=== PATIENT | female | born 1995 | race Caucasian/White ===

== ENCOUNTER → 2017-11-20 | Outpatient (CLI) | payer OTHER | LOC: M SMT 09:03 | DX: Z36.89 Encounter for other specified antenatal screening (principal); Z3A.18 18 weeks gestation of pregnancy | CPT/HCPCS: 76811 ==

== ENCOUNTER → 2017-12-20 | Outpatient (CLI) | payer OTHER | LOC: M SMT 11:04 | DX: O32.1XX0 Maternal care for breech presentation, not applicable or unspecified (principal); Z3A.22 22 weeks gestation of pregnancy | CPT/HCPCS: 76816 ==

== ENCOUNTER → 2018-01-30 | Outpatient (CLI) | payer OTHER ==
[2018-01-30 13:25] LABS: HEMATOCRIT 31.9 % (36.0-47.0); HEMOGLOBIN 10.5 g/dl (12.0-15.5); MEAN CORPUSCULAR HEMOGLOBIN 29.7 pg (27.0-33.0); MEAN CORPUSCULAR HGB CONC 32.9 g/dl (32.0-36.5); MEAN CORPUSCULAR VOLUME 90.1 fl (80.0-96.0); PLATELET COUNT, AUTOMATED 316 10^3/uL (150-450); RED BLOOD COUNT 3.54 10^6/uL (4.00-5.40); RED CELL DISTRIBUTION WIDTH 13.2 % (11.5-14.5); WHITE BLOOD COUNT 8.4 10^3/uL (4.0-10.0)
[2018-01-30 14:00] LABS: GLUCOSE CHALLENGE TEST 1 HOUR 94 MG/DL (LESS THAN 140)
== END ==
LOC: M SMT 07:59
DX: Z34.82 Encounter for supervision of other normal pregnancy, second trimester (principal)

== ENCOUNTER → 2018-03-21 | Outpatient (CLI) | payer OTHER | LOC: M ADAMS 14:49 | DX: S96.912A Strain of unspecified muscle and tendon at ankle and foot level, left foot, initial encounter (principal); X58.XXXA Exposure to other specified factors, initial encounter; Y92.9 Unspecified place or not applicable | CPT/HCPCS: 73630 ==

== ENCOUNTER → 2018-03-27 | Outpatient (REF) | payer OTHER | LOC: M LAB REF 12:55 | DX: Z34.83 Encounter for supervision of other normal pregnancy, third trimester (principal) ==

== ENCOUNTER 2018-04-20 12:58 | Inpatient (IN) | payer OTHER ==
[2018-04-20 14:15] LABS: HEMATOCRIT 34.2 % (36.0-47.0); HEMOGLOBIN 11.7 g/dl (12.0-15.5); MEAN CORPUSCULAR HEMOGLOBIN 30.3 pg (27.0-33.0); MEAN CORPUSCULAR HGB CONC 34.2 g/dl (32.0-36.5); MEAN CORPUSCULAR VOLUME 88.6 fl (80.0-96.0); PLATELET COUNT, AUTOMATED 283 10^3/uL (150-450); RED BLOOD COUNT 3.86 10^6/uL (4.00-5.40); RED CELL DISTRIBUTION WIDTH 14.7 % (11.5-14.5); WHITE BLOOD COUNT 10.1 10^3/uL (4.0-10.0)
[2018-04-20] MEDS: miSOPROStol 50 MCG 1/2 TAB (S0191) PO (14:20)
[2018-04-20] MEDS: LR 1,000 ML IV (21:39)
[2018-04-20] MEDS: OXYTOCIN DRIP 30 UNITS in APPROPRIATE DILUENT 1 EA IV (21:42)
[2018-04-21] MEDS: LR 1,000 ML IV ×2 (03:17→22:24)
[2018-04-21] MEDS: MORPHINE 10 MG/ML 1ML VIAL (J2270) IV (10:02)
[2018-04-21] MEDS: MORPHINE 10 MG/ML 1ML VIAL (J2270) SC (10:02)
[2018-04-21] MEDS: PROMETHAZINE INJ 25 MG/ML VIAL (J2550) IV (10:02)
[2018-04-21] MEDS ORDERED: FENTANYL 2MCG/ML ROPIVACAINE 0.2% IN 0.9% NACL 200ML IVBAG As Ordered (13:57)
[2018-04-21] MEDS ORDERED: ePHEDrine SULFATE 25 MG/5 ML(5MG/ML) SYRINGE IV (15:30)
[2018-04-21] MEDS ORDERED: LACTATED RINGER'S 1000 ML IV (15:30)
[2018-04-21] MEDS ORDERED: diphenhydrAMINE INJ 50MG/ML VIAL (J1200) IV (15:30)
[2018-04-21] MEDS ORDERED: EPIDURAL COMMENT XX (15:30)
[2018-04-21] MEDS ORDERED: REFRIGERATOR IV KEYS XX (15:30)
[2018-04-21] MEDS ORDERED: FENTANYL/ROPIVACAINE/NACL BAG 200 ML EPIDURAL (15:30)
[2018-04-21] MEDS ORDERED: NALOXONE INJ 0.4 MG/1 ML VIAL (J2310) IV (15:30)
[2018-04-21] MEDS ORDERED: EPIDURAL/PCA KEYS XX (15:30)
[2018-04-21] MEDS ORDERED: ONDANSETRON 4MG/2ML VIAL (J2405) IV (15:30)
[2018-04-21] MEDS: ACETAMINOPHEN 500 MG TAB PO (22:25)
[2018-04-22] MEDS: LACTATED RINGER'S 1000 ML IV (03:16)
[2018-04-22] MEDS: BICITRA 30ML SOLN UDC PO (03:30)
[2018-04-22] MEDS: LR 1,000 ML IV ×2 (03:38→05:00)
[2018-04-22] MEDS ORDERED: ONDANSETRON 4MG/2ML VIAL (J2405) IV ×3 (03:45→05:00)
[2018-04-22] MEDS ORDERED: NORCO, ANEXSIA 5/325MG TABLET (HYDROcodone/ACETAMINOPHEN) PO (03:45)
[2018-04-22] MEDS ORDERED: MEASLES,MUMPS,RUBELLA VACCINE INJ (MMR-II) (90707) SC (03:45)
[2018-04-22] MEDS ORDERED: MOM 30ML SUSPENSION UDC PO (03:45)
[2018-04-22] MEDS ORDERED: RHOGAM 300 MCG (1500 IU) INJ (J2790) IM (03:45)
[2018-04-22] MEDS ORDERED: ANUSOL HC CREAM 30GM TOP (03:45)
[2018-04-22] MEDS ORDERED: IBUPROFEN 800 MG TAB PO (04:00)
[2018-04-22] MEDS ORDERED: KETOROLAC 60 MG/2 ML VIAL (J1885) As Ordered (04:01)
[2018-04-22] MEDS ORDERED: dexameTHASONE 4 MG/ML 1ML VIAL (J1100) As Ordered (04:01)
[2018-04-22] MEDS ORDERED: ONDANSETRON 4MG/2ML VIAL (J2405) As Ordered (04:01)
[2018-04-22] MEDS ORDERED: PHENYLephrine HCL 500 MCG/5 ML (100MCG/ML) SYRINGE (J2370) As Ordered (04:01)
[2018-04-22] MEDS ORDERED: MORPHINE PRES-FREE INJ 10 MG/10 ML VIAL (J2274) As Ordered (04:01)
[2018-04-22] MEDS ORDERED: OXYTOCIN INJ 10 UNITS/ML VIAL (J2590) As Ordered (04:01)
[2018-04-22] MEDS ORDERED: NALBUPHINE HCL 10 MG/ML AMP (J2300) IV ×2 (04:14→05:00)
[2018-04-22] MEDS ORDERED: METOCLOPRAMIDE INJ 10MG/2ML VIAL (J2765) IV (04:14)
[2018-04-22] MEDS ORDERED: NALOXONE INJ 0.4 MG/1 ML VIAL (J2310) IV ×2 (04:14)
[2018-04-22 04:24] LABS: CORD GAS ABE A -3.6; CORD GAS ABE V -2.4; CORD GAS HCO3 A 21.9 MEQ/L; CORD GAS O2 SAT A 23.5 %; CORD GAS O2 SAT V 54.2 %; CORD GAS PCO2 A 41.2 mmHg; CORD GAS PCO2 V 36.9 mmHg; CORD GAS PH A 7.343 UNITS; CORD GAS PH V 7.393 UNITS; CORD GAS PO2 A 12.9 mmHg; CORD GAS PO2 V 21.9 mmHg; CORD GAS SBC A 19.9 MEQ/L; CORD GAS SBC V 21.5 MEQ/L; CORD GAS TCO2 A 23.1 MEQ/L; CORD GAS TCO2 V 23.1 MEQ/L
[2018-04-22] MEDS ORDERED: fentaNYL 100 MCG/2 ML INJECTION (J3010) IV (05:00)
[2018-04-22] MEDS: DOCUSATE SODIUM 100 MG CAP PO ×2 (08:44→21:36)
[2018-04-22] MEDS: PRENATAL VITAMINS CHEWABLE TABLET PO (08:44)
[2018-04-22] MEDS: IBUPROFEN 800 MG TAB PO ×2 (11:26→21:36)
[2018-04-23] MEDS: IBUPROFEN 800 MG TAB PO ×3 (04:47→19:58)
[2018-04-23 06:45] LABS: HEMATOCRIT 19.7 % (36.0-47.0); MEAN CORPUSCULAR HEMOGLOBIN 30.6 pg (27.0-33.0); MEAN CORPUSCULAR HGB CONC 34.5 g/dl (32.0-36.5); MEAN CORPUSCULAR VOLUME 88.7 fl (80.0-96.0); PLATELET COUNT, AUTOMATED 207 10^3/uL (150-450); RED BLOOD COUNT 2.22 10^6/uL (4.00-5.40); RED CELL DISTRIBUTION WIDTH 14.9 % (11.5-14.5); WHITE BLOOD COUNT 20.8 10^3/uL (4.0-10.0)
[2018-04-23 06:49] LABS: HEMOGLOBIN 6.8 g/dl (12.0-15.5)
[2018-04-23] MEDS: FERROUS GLUCONATE 324 MG TAB PO ×3 (10:52→19:58)
[2018-04-23] MEDS: PRENATAL VITAMINS CHEWABLE TABLET PO (10:52)
[2018-04-23] MEDS: DOCUSATE SODIUM 100 MG CAP PO ×2 (10:53→19:58)
[2018-04-24] MEDS: IBUPROFEN 800 MG TAB PO ×3 (04:10→20:03)
[2018-04-24 07:08] LABS: HEMATOCRIT 18.8 % (36.0-47.0); MEAN CORPUSCULAR HEMOGLOBIN 30.7 pg (27.0-33.0); MEAN CORPUSCULAR HGB CONC 34.6 g/dl (32.0-36.5); MEAN CORPUSCULAR VOLUME 88.7 fl (80.0-96.0); PLATELET COUNT, AUTOMATED 221 10^3/uL (150-450); RED BLOOD COUNT 2.12 10^6/uL (4.00-5.40); RED CELL DISTRIBUTION WIDTH 14.6 % (11.5-14.5); WHITE BLOOD COUNT 13.8 10^3/uL (4.0-10.0)
[2018-04-24 07:12] LABS: HEMOGLOBIN 6.5 g/dl (12.0-15.5)
[2018-04-24] MEDS: PRENATAL VITAMINS CHEWABLE TABLET PO (09:05)
[2018-04-24] MEDS: DOCUSATE SODIUM 100 MG CAP PO ×2 (09:05→20:03)
[2018-04-24] MEDS: FERROUS GLUCONATE 324 MG TAB PO ×3 (09:05→20:03)
[2018-04-24 16:05] LABS: IMMEDIATE SPIN CROSSMATCH 1 3
[2018-04-24] MEDS: NORCO, ANEXSIA 5/325MG TABLET (HYDROcodone/ACETAMINOPHEN) PO (16:05)
[2018-04-25] MEDS: IBUPROFEN 800 MG TAB PO (03:11)
[2018-04-25 07:17] LABS: HEMATOCRIT 30.6 % (36.0-47.0); MEAN CORPUSCULAR HEMOGLOBIN 30.2 pg (27.0-33.0); MEAN CORPUSCULAR HGB CONC 34.6 g/dl (32.0-36.5); MEAN CORPUSCULAR VOLUME 87.2 fl (80.0-96.0); PLATELET COUNT, AUTOMATED 256 10^3/uL (150-450); RED BLOOD COUNT 3.51 10^6/uL (4.00-5.40); RED CELL DISTRIBUTION WIDTH 14.5 % (11.5-14.5); WHITE BLOOD COUNT 13.2 10^3/uL (4.0-10.0)
[2018-04-25 07:26] LABS: HEMOGLOBIN 10.6 g/dl (12.0-15.5)
[2018-04-25] MEDS: FERROUS GLUCONATE 324 MG TAB PO (08:23)
[2018-04-25] MEDS: DOCUSATE SODIUM 100 MG CAP PO (08:23)
[2018-04-25] MEDS: PRENATAL VITAMINS CHEWABLE TABLET PO (08:23)
== END 2018-04-25 09:38 | disposition home or self-care (01) | DRG 765 ==
LOC: M LDI 12:58 → M OBS 04-22 05:56
PROVIDERS: Advanced Practice Midwife
PROC: 10D00Z1 Extraction of Products of Conception, Low, Open Approach (ICD-10-PCS; principal; 2018-04-22 03:42)
PROC: 3E033VJ Introduction of Other Hormone into Peripheral Vein, Percutaneous Approach (ICD-10-PCS; 2018-04-22 03:42)
DX: O48.0 Post-term pregnancy (principal); O98.52 Other viral diseases complicating childbirth; Z37.0 Single live birth; Z3A.40 40 weeks gestation of pregnancy; O69.82X0 Labor and delivery complicated by other cord entanglement, without compression, not applicable or unspecified; O32.4XX0 Maternal care for high head at term, not applicable or unspecified; B00.9 Herpesviral infection, unspecified; Z88.2 Allergy status to sulfonamides

== ENCOUNTER → 2019-02-26 | Outpatient (CLI) | payer OTHER ==
[~2019-02-26] MED LIST: COLA100C5 PO; FERG27TA PO; IBUP80TA PO; PERC5TAB12 PO; PRENTAB9 PO; VALA500T5 PO
--- NOTE | 2019-02-26 13:24 | REP ---
ULTRASOUND RIGHT BREAST: Real-time sonographic evaluation of right breast performed in the region of a palpable abnormality between 2- and 4-o'clock position. There is dense fibroglandular tissue noted in this region. No cystic or solid nodule is seen. IMPRESSION: ACR 2 benign ultrasound right breast. No cystic or solid nodule in the right breast between the 2- and 4-o'clock regions. There is dense fibroglandular tissue. Clinical correlation and followup is recommended. Electronically Signed by Mega Foley MD 02/27/2019 04:39 P
== END ==
LOC: M RAD 10:03
PROVIDERS: ATTEND Advanced Practice Midwife
DX: Z86.018 Personal history of other benign neoplasm (principal)

== ENCOUNTER → 2019-07-09 | Outpatient (REF) | payer OTHER ==
[2019-07-09 16:38] LABS: BASO # 0.1 10^3/uL (0.0-0.2); BASO % 0.5 % (0.0-1.0); EOS # 0.1 10^3/uL (0.0-0.5); EOS % 0.8 % (0.0-3.0); HEMATOCRIT 33.1 % (36.0-47.0); HEMOGLOBIN 11.5 g/dl (12.0-15.5); LYMPH # 1.9 10^3/uL (1.5-5.0); LYMPH % 17.9 % (24.0-44.0); MEAN CORPUSCULAR HEMOGLOBIN 30.9 pg (27.0-33.0); MEAN CORPUSCULAR HGB CONC 34.7 g/dl (32.0-36.5); MONO # 0.5 10^3/uL (0.0-0.8); MONO % 4.2 % (0.0-5.0); NEUTROPHILS # 8.1 10^3/uL (1.5-8.5); NEUTROPHILS % 76.1 % (36.0-66.0); PLATELET COUNT, AUTOMATED 337 10^3/uL (150-450); RED BLOOD COUNT 3.72 10^6/uL (4.00-5.40); WHITE BLOOD COUNT 10.6 10^3/uL (4.0-10.0)
[2019-07-09 19:47] LABS: CHLAMYDIA DNA AMPLIFICATION NEGATIVE (NEGATIVE); GC DNA AMPLIFICATION NEGATIVE (NEGATIVE)
[2019-07-10 07:07] LABS: HEPATITIS C VIRUS ABY INDEX 0.1 INDEX (<0.8); HIV 1&2 SCREEN CENTAUR NEGATIVE (NEGATIVE); RUBELLA IgG QUALITATIVE IMMUNE (IMMUNE)
== END ==
LOC: M LABDRWAD 15:04
PROVIDERS: ATTEND Advanced Practice Midwife
DX: Z34.81 Encounter for supervision of other normal pregnancy, first trimester (principal)

== ENCOUNTER → 2019-08-14 | Outpatient (CLI) | payer OTHER, BC ==
--- NOTE | 2019-08-15 01:02 | REP ---
Clinical: Anatomical evaluation. Comparison: None . Findings: Examination demonstrates a single live intrauterine in variable presentation. motion is identified by technologist. Placenta is noted posterior and grade zero without evidence for placenta previa or abruption. Amniotic fluid volume is normal. Cervix measures 5.6 cm in length and appears closed. No evidence for nuchal cord. Gestational age by LMP 19 weeks 1 day with OMAIRA 01/07/2020 . Gestational age by current measurements 18 weeks 5 days with OMAIRA 01/10/2020 . FHR equals 139 beats per minute. BPD 4.2 cm 18 weeks 4 days HC 15.3 cm 18 weeks 2 days AC 13.3 cm 18 weeks 6 days FL 3.0 cm 19 weeks 1 day HL 2.9 cm 19 weeks 4 days HC/AC ratio 1.15 Estimated weight 263 grams ( 39 percentile). Anatomical assessment demonstrates normal structures including cranium, choroid plexus, cavum, cerebellum/posterior fossa, facial features, lungs, four-chamber heart/ventricular outflow tracts, diaphragm, stomach, cord insertion/three-vessel cord, kidneys/bladder, spine, and extremities. Technologist documents asymmetric size to the umbilical arteries (right greater than left) which is of uncertain clinical significance. Impression: 1. Single live intrauterine in variable presentation demonstrating appropriate interval growth. 2. Anatomical assessment is essentially complete and normal. 3. Asymmetric size to the bilateral umbilical arteries of uncertain significance. Consider repeat anatomical evaluation in 2-4 weeks. Electronically Signed by León Rothman MD 08/15/2019 12:53 A
== END ==
LOC: M RAD 09:15
PROVIDERS: ATTEND Advanced Practice Midwife
DX: Z34.02 Encounter for supervision of normal first pregnancy, second trimester (principal)

== ENCOUNTER → 2019-10-16 | Outpatient (CLI) | payer OTHER, BC ==
[2019-10-16 17:02] LABS: HEMATOCRIT 34.6 % (36.0-47.0); HEMOGLOBIN 11.3 g/dl (12.0-15.5); MEAN CORPUSCULAR HGB CONC 32.7 g/dl (32.0-36.5); MEAN CORPUSCULAR VOLUME 91.8 fl (80.0-96.0); PLATELET COUNT, AUTOMATED 303 10^3/uL (150-450); RED BLOOD COUNT 3.77 10^6/uL (4.00-5.40); WHITE BLOOD COUNT 8.9 10^3/uL (4.0-10.0)
== END ==
LOC: M PLALAB 13:55
PROVIDERS: ATTEND Advanced Practice Midwife
DX: Z31.82 Encounter for Rh incompatibility status (principal); Z36.89 Encounter for other specified antenatal screening

== ENCOUNTER → 2019-11-12 | Outpatient (CLI) | payer OTHER, BC | LOC: M LAB 07:53 | PROVIDERS: ATTEND Advanced Practice Midwife | DX: O99.810 Abnormal glucose complicating pregnancy (principal) ==

== ENCOUNTER → 2019-12-11 | Outpatient (CLI) | payer OTHER, BC | LOC: M PLALAB 09:58 | PROVIDERS: ATTEND Advanced Practice Midwife | DX: O34.211 Maternal care for low transverse scar from previous cesarean delivery (principal); Z3A.00 Weeks of gestation of pregnancy not specified ==

== ENCOUNTER → 2019-12-11 | Outpatient (REF) | payer OTHER, BC | LOC: M SFHCWAGY 13:05 | PROVIDERS: ATTEND Advanced Practice Midwife | DX: Z36.89 Encounter for other specified antenatal screening (principal); Z3A.00 Weeks of gestation of pregnancy not specified ==

== ENCOUNTER 2020-01-06 04:19 | Inpatient (IN) | payer OTHER, BC ==
[2020-01-06] VITALS (25 sets, daily range): BP systolic 115–182; BP diastolic 65–91
[~2020-01-06] VITALS: Ht 165.1 cm; Wt 71.8 kg
[2020-01-06] MEDS ORDERED: LR 1,000 ML IV SCH (05:16)
[2020-01-06] MEDS ORDERED: LACTATED RINGER'S 1000 ML IV STA (05:16)
[2020-01-06] MEDS ORDERED: FENTANYL 2MCG/ML ROPIVACAINE 0.2% IN 0.9% NACL 100ML IVBAG As Ordered ONE (05:23)
[2020-01-06 05:27] LABS: HEMATOCRIT 34.7 % (36.0-47.0); HEMOGLOBIN 11.5 g/dl (12.0-15.5); MEAN CORPUSCULAR HEMOGLOBIN 27.9 pg (27.0-33.0); MEAN CORPUSCULAR HGB CONC 33.1 g/dl (32.0-36.5); MEAN CORPUSCULAR VOLUME 84.2 fl (80.0-96.0); PLATELET COUNT, AUTOMATED 306 10^3/uL (150-450); RED BLOOD COUNT 4.12 10^6/uL (4.00-5.40); WHITE BLOOD COUNT 13.5 10^3/uL (4.0-10.0)
[2020-01-06] MEDS ORDERED: fentaNYL 100 MCG/2 ML INJECTION (J3010) As Ordered ONE (06:28)
[2020-01-06] MEDS ORDERED: EPIDURAL COMMENT XX SCH (07:30)
[2020-01-06] MEDS ORDERED: REFRIGERATOR IV KEYS XX PRN (07:30)
[2020-01-06] MEDS ORDERED: LACTATED RINGER'S 1000 ML IV PRN (07:30)
[2020-01-06] MEDS ORDERED: diphenhydrAMINE INJ 50MG/ML VIAL (J1200) IV PRN (07:30)
[2020-01-06] MEDS ORDERED: NALOXONE INJ 0.4 MG/1 ML VIAL (J2310) IV PRN (07:30)
[2020-01-06] MEDS ORDERED: ONDANSETRON 4MG/2ML VIAL (J2405) IV PRN (07:30)
[2020-01-06] MEDS ORDERED: EPIDURAL/PCA KEYS XX PRN (07:30)
[2020-01-06] MEDS ORDERED: ePHEDrine SULFATE 25 MG/5 ML(5MG/ML) SYRINGE IV PRN (07:30)
[2020-01-06] MEDS ORDERED: FENTANYL/ROPIVACAINE/NACL BAG 100 ML EPIDURAL SCH (07:30)
[2020-01-06] MEDS ORDERED: OXYTOCIN 30 UNITS IN 0.9% NaCl 500ML IV BAG (J2590) As Ordered ONE (08:20)
--- NOTE | 2020-01-06 09:08 | DNPDOC ---
[facility] Delivery Note Delivery Note DATE OF DELIVERY: 01/06/2020 at 0842 PREDELIVERY DIAGNOSIS: 39-6/7 weeks' gestation and labor. POST DELIVERY DIAGNOSIS: Delivered. PROCEDURE: Spontaneous vaginal delivery after section. PROVIDER: Cierra Meredith, Student Nurse-C Software Engineer, assisted by Padma Lucia CNM, KAYLEEN ANESTHESIA: Epidural. ESTIMATED BLOOD LOSS: 350 mL. FINDINGS: 8 pound 5 ounce (3770g) viable female , Score 8/9, nuchal cord times 1 tight. DELIVERY SUMMARY: Patient is a 24-year-old 2 now para 2-0-0-2 who was admitted to labor and delivery for spontaneous labor after SROM at 0300. Patient received an epidural for pain management. The patient progressed to full dilation at 0826 and pushed to a living female in the GABI position with restitution to OP at 0842. A tight nuchal cord was noted. The anterior shoulder delivered with ease and the corpus immediately followed via somersault maneuvers. The baby was placed on the maternal abdomen, [id number], active and crying. The cord was clamped times 2 after pulsation ceased and cut by the FOB. A 3-vessel cord was noted. The placenta delivered spontaneously and intact at 0848. Uterine hemostasis was achieved via rapid infusion of IV Pitocin at 999 ml/hr for 30 units in 500 ml NS and fundal massage. The vagina, cervix and perineum were inspected and found to have a vaginal abrasion that was repaired with 3.[address]-1 and a left labial abrasion that was not repaired due to good hemostasis. Both mom and baby are in good condition. All counts of instruments and sponges are correct. PADMA LUCIA CNM Jan 06, 2020 09:08
[2020-01-06] MEDS ORDERED: DIBUCAINE 1% OINTMENT 30GM TOP PRN (09:30)
[2020-01-06] MEDS ORDERED: DOCUSATE SODIUM 100 MG CAP PO PRN (09:30)
[2020-01-06] MEDS ORDERED: ACETAMINOPHEN 500 MG TAB PO PRN (09:30)
[2020-01-06] MEDS ORDERED: ANUSOL HC CREAM 30GM TOP PRN (09:30)
[2020-01-06] MEDS ORDERED: ACETAMINOPHEN TAB 650MG DOSE (2X325MG) PO PRN (09:30)
[2020-01-06] MEDS ORDERED: METHYLERGONOVINE MALEATE 0.2 MG TAB PO PRN (09:30)
[2020-01-06] MEDS ORDERED: IBUPROFEN 600 MG TAB PO PRN (09:30)
[2020-01-06] MEDS ORDERED: OXYTOCIN DRIP 30 UNITS in IV 1 EA IV SCH (10:00)
[2020-01-06] MEDS: PRENATAL VITAMINS CHEWABLE TABLET PO SCH (12:00)
[2020-01-06] MEDS: IBUPROFEN 800 MG TAB PO PRN (17:53)
[2020-01-07 06:00] VITALS: BP 101/59
--- NOTE | 2020-01-07 07:01 | IPNPDOC ---
Progress Note Date of Service: Jan 07, 2020 Day#: 1 Progress Note SUBJECT: Anu is a 24-year-old 2 now Para 2-0-0-2 status post unco mplicated spontaneous vaginal delivery at 39-6/7 weeks' gestation doing well day # 1. She has been ambulating, voiding spontaneously without issue and tolerating regular diet. Breast feeding without issue. Reports lochia is like a normal period. Denies any pain. OBJECTIVE: VITAL SIGNS: Within normal limits, afebrile. Alert and oriented times three. Breath sounds clear to auscultation. Heart rate: Regular rate and rhythm, no murmurs, rubs or gallops. Abdomen: Fundus firm at U-2. Soft, appropriately tender to palpation. Minimal lochia. ASSESSMENT: day #1. Vitals within normal limits, afebrile, hemodynamically stable with no evidence of infection. PLAN: 1. Discharge to home tomorrow. 2. Tylenol and Motrin for pain. 3. Encourage breast feeding and ambulation. 4. Routine care. VS, I&O, 24H, Fishbone Vital Signs/I&O Vital Signs Date Time Temp Pulse Resp B/P (MAP) Pulse Ox O2 Delivery O2 Flow Rate FiO2 01/07/20 06:00 98.5 75 17 101/59 (73) 98 Room Air I&O- Last 24 Hours up to 6 AM 01/07/20 06:00 Intake Total 2338 ml Output Total 1250 ml Balance 1088 ml PADMA HERRERA CNM Jan 07, 2020 07:01
[2020-01-07] MEDS: PRENATAL VITAMINS CHEWABLE TABLET PO SCH (09:15)
[2020-01-07] MEDS: IBUPROFEN 800 MG TAB PO PRN (09:16)
[2020-01-07] MEDS ORDERED: ACET-683 PO (15:49)
[2020-01-07] MEDS ORDERED: IBUP80TA PO (15:49)
== END 2020-01-07 16:13 | disposition home or self-care (01) | DRG 806 ==
LOC: M LDO 04:19 → M LDI 04:45 → M OBS 11:30
PROVIDERS: ADMIT Obstetrics & Gynecology; ATTEND Obstetrics & Gynecology
PROC: 10E0XZZ Delivery of Products of Conception, External Approach (ICD-10-PCS; principal; 2020-01-06)
DX: O34.219 Maternal care for unspecified type scar from previous cesarean delivery (principal); Z37.0 Single live birth; B00.2 Herpesviral gingivostomatitis and pharyngotonsillitis; O98.52 Other viral diseases complicating childbirth; Z3A.39 39 weeks gestation of pregnancy; O69.1XX0 Labor and delivery complicated by cord around neck, with compression, not applicable or unspecified

== ENCOUNTER → 2020-08-24 | Outpatient (REF) | payer OTHER, BC ==
[~2020-08-24] MED LIST changes: +ACET-683 PO
== END ==
LOC: M LAB REF 16:21
PROVIDERS: ATTEND Physician Assistant
DX: N39.0 Urinary tract infection, site not specified (principal)

== ENCOUNTER → 2021-03-01 | Outpatient (REF) | payer BC ==
[2021-03-01 12:54] LABS: BASO # 0.1 10^3/uL (0.0-0.2); BASO % 0.9 % (0.0-1.0); EOS # 0.3 10^3/uL (0.0-0.5); EOS % 3.2 % (0.0-3.0); HEMATOCRIT 41.5 % (36.0-47.0); HEMOGLOBIN 13.8 g/dl (12.0-15.5); LYMPH # 3.1 10^3/uL (1.5-5.0); LYMPH % 38.3 % (24.0-44.0); MEAN CORPUSCULAR HEMOGLOBIN 29.9 pg (27.0-33.0); MEAN CORPUSCULAR HGB CONC 33.3 g/dl (32.0-36.5); MEAN CORPUSCULAR VOLUME 89.8 fl (80.0-96.0); MONO # 0.5 10^3/uL (0.0-0.8); MONO % 6.7 % (2.0-8.0); NEUTROPHILS # 4.1 10^3/uL (1.5-8.5); NEUTROPHILS % 50.8 % (36.0-66.0); PLATELET COUNT, AUTOMATED 353 10^3/uL (150-450); RED BLOOD COUNT 4.62 10^6/uL (4.00-5.40); WHITE BLOOD COUNT 8.1 10^3/uL (4.0-10.0)
[2021-03-01 16:27] LABS: ALBUMIN 4.4 GM/DL (3.2-5.2); ALT/SGPT 16 U/L (12-78); BILIRUBIN,TOTAL 0.5 MG/DL (0.2-1.0); BLOOD UREA NITROGEN 12 MG/DL (7-18); CALCIUM LEVEL 9.4 MG/DL (8.5-10.1); CARBON DIOXIDE LEVEL 29 MEQ/L (21-32); CHLORIDE LEVEL 105 MEQ/L (98-107); CHOLESTEROL LEVEL 191 MG/DL (<200); CHOLESTEROL RISK RATIO 2.146 (<5); CREATININE FOR GFR 0.68 MG/DL (0.55-1.30); GLOMERULAR FILTRATION RATE > 60.0 (>60); GLUCOSE, FASTING 103 MG/DL (70-100); HDL CHOLESTEROL 89 MG/DL (>40); LDL CHOLESTEROL 87 MG/DL (<100); NON-HDL-C 102 MG/DL; POTASSIUM SERUM 4.2 MEQ/L (3.5-5.1); SODIUM LEVEL 138 MEQ/L (136-145); THYROID STIMULATING HORMONE 0.904 uIU/ML (0.358-3.740); TOTAL PROTEIN 7.6 GM/DL (6.4-8.2); TRIGLYCERIDES LEVEL 74 MG/DL (<150)
== END ==
LOC: M SFHCADAM 10:59
PROVIDERS: ATTEND Physician Assistant Medical
DX: Z00.00 Encounter for general adult medical examination without abnormal findings (principal); Z13.220 Encounter for screening for lipoid disorders; Z13.0 Encounter for screening for diseases of the blood and blood-forming organs and certain disorders involving the immune mechanism

== ENCOUNTER 2021-03-31 15:21 | Emergency (ER) | payer BC ==
[~2021-03-31] VITALS: Ht 162.6 cm; Wt 57.3 kg
[2021-03-31 16:29] LABS: APPEARANCE, URINE CLEAR (CLEAR); BACTERIA, URINE AUTO 1+ (NEGATIVE); BILIRUBIN, URINE AUTO NEGATIVE (NEGATIVE); BLOOD, URINE BLOOD NEGATIVE (NEGATIVE); COLOR, URINE STRAW (YELLOW); GLUCOSE, URINE (UA) AUTO NEGATIVE (NEGATIVE); KETONE, URINE AUTO NEGATIVE (NEGATIVE); LEUKOCYTE ESTERASE, URINE AUTO NEGATIVE (NEGATIVE); NITRITE, URINE AUTO NEGATIVE (NEGATIVE); PROTEIN, URINE AUTO NEGATIVE (NEGATIVE); RBC, URINE AUTO 1 /HPF (0-3); SPECIFIC GRAVITY URINE AUTO 1.004 (1.002-1.035); SQUAMOUS EPITHELIAL CELL UR AU 1 /HPF (0-6); UROBILINOGEN, URINE AUTO 0.2 mg/dL (0.0-2.0); WBC, URINE AUTO 1 /HPF (0-3)
--- NOTE | 2021-03-31 17:33 | REP ---
INDICATION: vag spotting, cramping, 7 wks preg. COMPARISON: None TECHNIQUE: Transabdominal imaging FINDINGS: Within the endometrial cavity there is an anechoic structure with increased echoes surrounding it consistent with a decidual reaction. Within the gestational sac there is echogenic material consistent with a pole the mean crown-rump length measurement of which is consistent with a 6 week 4 day gestational age. Based on that the estimated date of delivery is 11/20/2021. Doppler interrogation of the pole shows a heart rate of 122 beats per minute. A tiny anechoic structure was seen within the gestational sac consistent with a yolk sac. No chorionic or subchorionic abnormality was noted. IMPRESSION: Early OB ultrasound as described above. <Electronically signed by Narinder Jett > 03/31/21 [id number]
[2021-03-31 17:53] LABS: BASO # 0.1 10^3/uL (0.0-0.2); BASO % 0.6 % (0.0-1.0); EOS # 0.3 10^3/uL (0.0-0.5); EOS % 2.2 % (0.0-3.0); HEMATOCRIT 38.7 % (36.0-47.0); HEMOGLOBIN 13.1 g/dl (12.0-15.5); LYMPH # 2.6 10^3/uL (1.5-5.0); LYMPH % 20.8 % (24.0-44.0); MEAN CORPUSCULAR HEMOGLOBIN 30.3 pg (27.0-33.0); MEAN CORPUSCULAR HGB CONC 33.9 g/dl (32.0-36.5); MEAN CORPUSCULAR VOLUME 89.6 fl (80.0-96.0); MONO # 0.7 10^3/uL (0.0-0.8); MONO % 5.3 % (2.0-8.0); NEUTROPHILS # 8.9 10^3/uL (1.5-8.5); NEUTROPHILS % 70.7 % (36.0-66.0); PLATELET COUNT, AUTOMATED 355 10^3/uL (150-450); RED BLOOD COUNT 4.32 10^6/uL (4.00-5.40); WHITE BLOOD COUNT 12.6 10^3/uL (4.0-10.0)
[2021-03-31 19:13] VITALS: BP 104/70
== END 2021-03-31 19:15 | disposition home or self-care (01) ==
LOC: M ED 15:21
DX: O34.61 Maternal care for abnormality of vagina, first trimester (principal); Z3A.01 Less than 8 weeks gestation of pregnancy; Z79.899 Other long term (current) drug therapy; Z88.2 Allergy status to sulfonamides

== ENCOUNTER → 2021-04-07 | Outpatient (REF) | payer BC ==
[2021-04-07 15:14] LABS: HEMATOCRIT 36.8 % (36.0-47.0); HEMOGLOBIN 12.2 g/dl (12.0-15.5); MEAN CORPUSCULAR HEMOGLOBIN 29.8 pg (27.0-33.0); MEAN CORPUSCULAR HGB CONC 33.2 g/dl (32.0-36.5); PLATELET COUNT, AUTOMATED 360 10^3/uL (150-450); RED BLOOD COUNT 4.09 10^6/uL (4.00-5.40); WHITE BLOOD COUNT 9.8 10^3/uL (4.0-10.0)
[2021-04-07 16:36] LABS: HIV 1&2 SCREEN CENTAUR NEGATIVE (NEGATIVE)
== END ==
LOC: M PLALAB 13:29
PROVIDERS: ATTEND Advanced Practice Midwife
DX: O34.211 Maternal care for low transverse scar from previous cesarean delivery (principal); Z3A.00 Weeks of gestation of pregnancy not specified

== ENCOUNTER → 2021-05-06 | Outpatient (REF) | payer BC ==
[2021-05-06 15:17] LABS: GC DNA AMPLIFICATION NEGATIVE (NEGATIVE)
== END ==
LOC: M SFHCWAGY 12:55
PROVIDERS: ATTEND Advanced Practice Midwife
DX: O34.211 Maternal care for low transverse scar from previous cesarean delivery (principal)

== ENCOUNTER → 2021-07-19 | Outpatient (CLI) | payer BC ==
--- NOTE | 2021-07-19 15:24 | REP ---
INDICATION: ANATOMY. COMPARISON: None. TECHNIQUE: Transabdominal real-time sonographic evaluation FINDINGS: Multiple ultrasonographic images of the gravid uterus shows a single living intrauterine gestation in variable positions. Doppler interrogation of the heart shows a heart rate of 147 beats per minute. The placenta is anterior and not low-lying. The cervix measures 4 cm in length and is closed. The subjective amniotic fluid volume is within normal limits. BPD: 5.3 cm 22 weeks 1 day HC: 20.1 cm 22 weeks 2 days AC: 17.1 cm 22 weeks 0 days FL: 3.6 cm 21 weeks 3 days The estimated weight is 456 g which is at the 19th percentile for a 22 week 3 day gestational age. anatomical structures seen to be unremarkable are as follows: Thalami, cavum septum pellucidum, cisterna magna, cerebral ventricles, spine, kidneys, urinary bladder, cord insertion, stomach, upper lip, three-vessel umbilical cord, and upper lower extremities. The cerebellum, four-chamber heart, and ventricular outflow tracts were suboptimally visualized. IMPRESSION: Single living intrauterine gestation as described above with an estimated gestational age of 21 weeks 6 days via composite criteria and an estimated date of delivery of 11/23/2021 by today's exam. No anomalies were detected, however, recommend a follow-up examination to better visualize those structures not well seen today as described above. <Electronically signed by Narinder Jett > 07/19/21 [id number]
== END ==
LOC: M WHC 12:35
PROVIDERS: ATTEND Advanced Practice Midwife
DX: Z36.89 Encounter for other specified antenatal screening (principal); Z3A.21 21 weeks gestation of pregnancy

== ENCOUNTER → 2021-08-18 | Outpatient (CLI) | payer BC ==
--- NOTE | 2021-08-18 08:32 | REP ---
INDICATION: F/U ANATOMY COMPARISON: 07/19/2021 TECHNIQUE: Transabdominal obstetrical ultrasound with color Doppler evaluation. FINDINGS: Examination demonstrates a single live intrauterine in transverse presentation. motion is identified by technologist. Placenta is noted anterior and grade 1 without evidence for placenta previa or abruption. Amniotic fluid volume is normal. Cervix measures 4.1 cm in length and appears closed.. Selected gestational age: 26 weeks 5 days with OMAIRA 11/19/2021. Gestational age by current measurements 26 weeks 5 days with OMAIRA 11/19/2021. FHR equals 143 beats per minute. Estimated weight 981 grams (41stpercentile). Anatomical assessment demonstrates normal structures including four-chamber heart/ventricular outflow tracts. IMPRESSION: Single live intrauterine in transverse lie demonstrating appropriate interval growth. In conjunction with prior examination anatomical assessment is complete and normal. <Electronically signed by León Rothman > 08/18/21 [id number]
== END ==
LOC: M WHC 06:57
PROVIDERS: ATTEND Advanced Practice Midwife
DX: O34.211 Maternal care for low transverse scar from previous cesarean delivery (principal); Z3A.36 36 weeks gestation of pregnancy

== ENCOUNTER → 2021-10-20 | Outpatient (REF) | payer BC | LOC: M SFHCWAGY 17:02 | PROVIDERS: ATTEND Advanced Practice Midwife | DX: O34.211 Maternal care for low transverse scar from previous cesarean delivery (principal); Z3A.00 Weeks of gestation of pregnancy not specified ==

== ENCOUNTER → 2021-11-24 | Outpatient (REF) | payer BC ==
[~2021-11-24] MED LIST changes: +VALT500T PO
== END ==
LOC: CANPREREF → M PLALAB 08:36
PROVIDERS: ATTEND Advanced Practice Midwife
DX: Z53.9 Procedure and treatment not carried out, unspecified reason (principal); N89.8 Other specified noninflammatory disorders of vagina

== ENCOUNTER → 2023-01-06 | Outpatient (REF) | payer BC | LOC: M PLALAB 16:28 | PROVIDERS: ATTEND Nurse Practitioner Family | DX: Z12.4 Encounter for screening for malignant neoplasm of cervix (principal) ==

== ENCOUNTER 2023-07-04 12:31 | Emergency (ER) | payer BC ==
[~2023-07-04] VITALS: Ht 165.1 cm; Wt 56.8 kg
[2023-07-04 12:31] VITALS: TEMP 97.8
[2023-07-04 15:13] LABS: BLOOD UREA NITROGEN 12 MG/DL (9-23); CALCIUM LEVEL 9.2 MG/DL (8.5-10.1); CARBON DIOXIDE LEVEL 25 MMOL/L (20-31); CHLORIDE LEVEL 103 MMOL/L (98-107); CK-MB VALUE MASS < 1.0 NG/ML (<3.6); CPK CREATINE PHOSPHOKINASE 119 U/L (34-145); CREATININE FOR GFR 0.69 MG/DL (0.55-1.30); GLOMERULAR FILTRATION RATE > 60.0 (>60); GLUCOSE, FASTING 88 MG/DL (60-100); MB/CK RELATIVE INDEX 0.84 (< OR =4); POTASSIUM SERUM 4.9 MMOL/L (3.5-5.1); SODIUM LEVEL 138 MMOL/L (136-145)
[2023-07-04 15:19] LABS: HCG, SERUM QUALITATIVE NEGATIVE (NEGATIVE)
[2023-07-04 15:23] LABS: BASO # 0.1 10^3/uL (0.0-0.2); BASO % 0.7 % (0.0-1.0); EOS # 0.1 10^3/uL (0.0-0.5); EOS % 1.6 % (0.0-3.0); HEMATOCRIT 39.8 % (36.0-47.0); HEMOGLOBIN 13.7 g/dl (12.0-15.5); LYMPH # 2.7 10^3/uL (1.5-5.0); LYMPH % 31.2 % (24.0-44.0); MEAN CORPUSCULAR HEMOGLOBIN 30.6 pg (27.0-33.0); MEAN CORPUSCULAR HGB CONC 34.4 g/dl (32.0-36.5); MONO # 0.5 10^3/uL (0.0-0.8); MONO % 5.8 % (2.0-8.0); NEUTROPHILS # 5.3 10^3/uL (1.5-8.5); NEUTROPHILS % 60.4 % (36.0-66.0); PLATELET COUNT, AUTOMATED 308 10^3/uL (150-450); RED BLOOD COUNT 4.47 10^6/uL (4.00-5.40); WHITE BLOOD COUNT 8.7 10^3/uL (4.0-10.0)
[2023-07-04] MEDS ORDERED: VENTAER INH (16:27)
[2023-07-04] MEDS ORDERED: NAPR-837 PO (16:27)
[2023-07-04 16:30] VITALS: BP 133/77; O2SAT 99
== END 2023-07-04 16:34 | disposition home or self-care (01) ==
LOC: M ED 12:31
DX: J98.01 Acute bronchospasm (principal); M26.609 Unspecified temporomandibular joint disorder, unspecified side; Z88.2 Allergy status to sulfonamides; Z79.52 Long term (current) use of systemic steroids; Z79.1 Long term (current) use of non-steroidal anti-inflammatories (NSAID)

== ENCOUNTER → 2025-01-20 | Outpatient (REF) | payer BC ==
[~2025-01-20] MED LIST changes: +NAPR-837 PO; +VENTAER INH
[2025-01-20 14:08] LABS: BASO # 0.1 10^3/uL (0.0-0.2); BASO % 0.9 % (0.0-1.0); EOS # 0.3 10^3/uL (0.0-0.5); EOS % 3.9 % (0.0-3.0); HEMATOCRIT 42.3 % (36.0-47.0); HEMOGLOBIN 14.1 g/dl (12.0-15.5); LYMPH # 2.4 10^3/uL (1.5-5.0); LYMPH % 29.2 % (24.0-44.0); MEAN CORPUSCULAR HEMOGLOBIN 30.5 pg (27.0-33.0); MEAN CORPUSCULAR HGB CONC 33.3 g/dl (32.0-36.5); MEAN CORPUSCULAR VOLUME 91.6 fl (80.0-96.0); MONO # 0.5 10^3/uL (0.0-0.8); MONO % 5.9 % (2.0-8.0); NEUTROPHILS # 4.9 10^3/uL (1.5-8.5); NEUTROPHILS % 59.9 % (36.0-66.0); PLATELET COUNT, AUTOMATED 362 10^3/uL (150-450); RED BLOOD COUNT 4.62 10^6/uL (4.00-5.40); WHITE BLOOD COUNT 8.1 10^3/uL (4.0-10.0)
[2025-01-20 14:14] LABS: ALBUMIN 4.4 G/DL (3.2-5.2); ALKALINE PHOSPHATASE 74 U/L (35-104); ALT/SGPT 15 U/L (7.0-40); AST/SGOT 12 U/L (<34); BILIRUBIN,TOTAL 0.6 MG/DL (0.3-1.2); BLOOD UREA NITROGEN 14 MG/DL (9-23); CALCIUM LEVEL 9.8 MG/DL (8.5-10.1); CARBON DIOXIDE LEVEL 28 MMOL/L (20-31); CHLORIDE LEVEL 105 MMOL/L (98-107); CHOLESTEROL LEVEL 168 MG/DL (<200); CHOLESTEROL RISK RATIO 2.28 (<5); CREATININE FOR GFR 0.79 MG/DL (0.55-1.30); FREE T4 1.44 NG/DL (0.89-1.76); GLOMERULAR FILTRATION RATE > 60.0 (>60); GLUCOSE, FASTING 84 MG/DL (60-100); HDL CHOLESTEROL 73.4 MG/DL (>40); LDL CHOLESTEROL 77.2 MG/DL (<100); NON-HDL-C 94.6 MG/DL; POTASSIUM SERUM 4.8 MMOL/L (3.5-5.1); SODIUM LEVEL 141 MMOL/L (136-145); THYROID STIMULATING HORMONE 1.333 uIU/ML (0.55-4.78); TOTAL PROTEIN 7.5 G/DL (5.7-8.2); TRIGLYCERIDES LEVEL 87 MG/DL (<150)
[2025-01-20 14:15] LABS: TOTAL 25(OH) VITAMIN D 26.4 NG/ML (20.0-100.0)
== END ==
LOC: M SFHCADAM 09:32
PROVIDERS: ATTEND Physician Assistant Medical
DX: Z13.220 Encounter for screening for lipoid disorders (principal); Z13.29 Encounter for screening for other suspected endocrine disorder; Z13.0 Encounter for screening for diseases of the blood and blood-forming organs and certain disorders involving the immune mechanism

== ENCOUNTER → 2025-10-22 | Outpatient (CLI) | payer BC | LOC: M CARPUL 12:49 | PROVIDERS: ATTEND Physician Assistant Medical | DX: Z82.49 Family history of ischemic heart disease and other diseases of the circulatory system (principal); I36.1 Nonrheumatic tricuspid (valve) insufficiency ==